=== PATIENT | female | born 1975 | race Hispanic/Latino ===

== ENCOUNTER 2018-06-17 22:37 | Emergency (ER) | payer MEDICARE, OTHER ==
[2018-06-17 23:28] LABS: BASOPHILS % (AUTO) 0.9 % (0.0-5.0); EOSINOPHILS % (AUTO) 2.6 % (0.0-8.0); HEMATOCRIT 42.5 % (36-48); MEAN CORPUSCULAR HEMOGLOBIN 29.8 pg (27.0-33.0); MEAN CORPUSCULAR HGB CONC 33.5 g/dL (32.0-36.0); MONOCYTES % (AUTO) 4.8 % (3.0-13.0); NEUTROPHILS % (AUTO) 53.7 % (40.0-77.0); PLATELET COUNT (AUTO) 285 K/uL (130-400); RED BLOOD CELL COUNT(AUTO) 4.78 MIL/uL (4.00-5.50); RED CELL DISTRIBUTION WIDTH 13.3 % (11.0-15.5); WHITE BLOOD COUNT (AUTO) 7.5 K/uL (4.8-10.8)
[2018-06-17 23:35] LABS: BILIRUBIN,URINE Negative (NEGATIVE); COLOR,URINE Yellow (YELLOW); GLUCOSE, URINE (UA) Negative (NEGATIVE); KETONES,URINE Negative (NEGATIVE); LEUKOCYTE ESTERASE ,URINE Negative (NEGATIVE); NITRATE,URINE Negative (NEGATIVE); OCCULT BLOOD,URINE Negative (NEGATIVE); PH,URINE 7.5 (5.0-8.0); PROTEIN,URINE Negative (NEGATIVE)
[2018-06-17 23:37] LABS: APPEARANCE,URINE CLEAR (CLEAR)
[2018-06-17 23:38] LABS: HCG,QUAL RESULT NEGATIVE (NEGATIVE)
[2018-06-17 23:40] LABS: CREATININE 0.8 mg/dL (0.5-1.5); POTASSIUM 3.6 mmol/L (3.5-5.1)
[2018-06-17 23:42] LABS: INR 0.96 (0.85-1.15); PARTIAL THROMBOPLASTIN TIME 28.4 SEC (26.3-35.5); PROTHROMBIN TIME 10.1 SEC (9.6-11.6)
[2018-06-17 23:44] LABS: ALBUMIN 4.4 g/dL (3.5-5.0); BILIRUBIN,TOTAL 0.8 mg/dL (0.2-1.0); TOTAL PROTEIN, SERUM 8.1 g/dL (6.0-8.3)
== END 2018-06-18 04:23 | disposition home or self-care (01) ==
LOC: EDH 22:37
DX: R14.0 Abdominal distension (gaseous) (principal); R10.84 Generalized abdominal pain; I10 Essential (primary) hypertension; Z90.49 Acquired absence of other specified parts of digestive tract; Z90.710 Acquired absence of both cervix and uterus
CPT/HCPCS: 36415; 71045; 74021; 76700; 80053; 81003; 81025; 82248; 84484; 85025; 85610; 85730; 93005

== ENCOUNTER 2022-08-22 12:17 | Observation (INO) | payer MEDICARE, OTHER ==
[2022-08-22 13:21] LABS: BASOPHILS % (AUTO) 0.3 % (0.0-5.0); HEMATOCRIT 30.8 % (36-48); LYMPHOCYTES % (AUTO) 13.1 % (21.0-51.0); MEAN CORPUSCULAR HEMOGLOBIN 22.1 pg (27.0-33.0); MEAN CORPUSCULAR HGB CONC 28.9 g/dL (32.0-36.0); MEAN CORPUSCULAR VOLUME 76.4 fL (79-99); MONOCYTES % (AUTO) 5.2 % (3.0-13.0); NEUTROPHILS % (AUTO) 80.1 % (40.0-77.0); PLATELET COUNT (AUTO) 218 K/uL (130-400); RED BLOOD CELL COUNT(AUTO) 4.03 MIL/uL (4.00-5.50); WHITE BLOOD COUNT (AUTO) 6.8 K/uL (4.8-10.8)
[2022-08-22 13:34] LABS: INR 1.04 (0.85-1.15); PROTHROMBIN TIME 11.3 SEC (9.6-11.6)
[2022-08-22 13:41] LABS: APPEARANCE,URINE CLEAR (CLEAR); BILIRUBIN,URINE NEGATIVE (NEGATIVE); COLOR,URINE LIGHT-YELLOW (YELLOW); GLUCOSE, URINE (UA) NEGATIVE (NEGATIVE); KETONES,URINE NEGATIVE (NEGATIVE); LEUKOCYTE ESTERASE ,URINE 25 Leu/uL (NEGATIVE); NITRATE,URINE NEGATIVE (NEGATIVE); OCCULT BLOOD,URINE NEGATIVE (NEGATIVE); PROTEIN,URINE NEGATIVE (NEGATIVE); UROBILINOGEN,URINE 0.2 mg/dL (0.2-1.0)
[2022-08-22 13:47] LABS: CREATININE 0.9 mg/dL (0.5-1.5); POTASSIUM 3.3 mmol/L (3.5-5.1)
[2022-08-22 13:51] LABS: ALBUMIN 3.6 g/dL (3.5-5.0); TOTAL PROTEIN, SERUM 6.2 g/dL (6.0-8.3)
[2022-08-22 13:53] LABS: B-TYPE NATRIURETIC PEPTIDE 41 pg/mL (0-100)
[2022-08-22 13:59] LABS: ABG BASE EXCESS -3.9 mmol/L (-2.0-3.0); ABG HCO3 19.9 mmol/L (21.0-28.0); ABG OXYGEN SATURATION 95.9 % (95.0-99.0); ABG PCO2 33 mmHg (32-45)
[2022-08-22 14:05] LABS: BACTERIA,URINE RARE /HPF (None Seen); MUCUS,URINE RARE LPF (None Seen); RBC,URINE 0-1 /HPF (0-1); SQUAMOUS EPITHELIAL CELL,UR RARE /HPF (0-2)
[2022-08-22] MEDS ORDERED: IOHEXOL-350 75 ML VIAL IV ONE (15:20)
[2022-08-22] MEDS ORDERED: POTASSIUM CHLORIDE 10% ELIXIR 20 MEQ/15 ML UDCUP PO PRN (17:00)
[2022-08-22] MEDS ORDERED: POTASSIUM CHLORIDE 20MEQ/100ML 100 ML IV PRN (17:00)
[2022-08-22] MEDS ORDERED: ACETAMINOPHEN 325 MG TAB PO PRN ×2 (17:00)
[2022-08-22] MEDS ORDERED: ZOLPIDEM TARTRATE 5 MG TAB PO PRN (17:00)
[2022-08-22] MEDS ORDERED: DiphenhydrAMINE HCL 50 MG/ML VIAL IV PRN (17:00)
[2022-08-22] MEDS ORDERED: DIPHENHYDRAMINE HCL 25 MG CAPSULE PO PRN (17:00)
[2022-08-22] MEDS ORDERED: MAGNESIUM 2GM PREMIX 50ML 50 ML IV PRN (17:00)
[2022-08-22] MEDS: 0.9%NACL 1000ML 1,000 ML IV SCH (17:10)
[2022-08-22] MEDS: ONDANSETRON 4MG INJ IV PRN (17:11)
[2022-08-22] MEDS ORDERED: HYDR-4419 PO (17:34)
[2022-08-22] MEDS ORDERED: MORINGA PO (17:34)
[2022-08-22] MEDS ORDERED: GABA-529 PO (17:34)
[2022-08-22] MEDS ORDERED: SENN8.6T32 PO (17:34)
[2022-08-22] MEDS ORDERED: SITA100T12 PO (17:34)
[2022-08-22] MEDS ORDERED: VIT D3 PO (17:34)
[2022-08-22] MEDS ORDERED: [UNRECOGNIZED DRUG - OTHER] PO (17:34)
[2022-08-22] MEDS ORDERED: PANT40TA54 PO (17:34)
[2022-08-22] MEDS ORDERED: MELA10TA2 PO (17:34)
[2022-08-22] MEDS ORDERED: LEVE750T10 PO ×2 (17:34→18:07)
[2022-08-22] MEDS ORDERED: TOPI25TA48 PO ×2 (17:34→18:07)
[2022-08-22] MEDS ORDERED: ONDA-105 PO (17:34)
[2022-08-22 17:41] LABS: CHOLESTEROL 153 mg/dL (<200); HDL CHOLESTEROL 35 mg/dL (35-85); LDL DIRECT 94 mg/dL (0-99); TRIGLYCERIDES 191 mg/dL (30-200)
[2022-08-22 17:46] LABS: HEMOGLOBIN A1C 5.1 % (4.0-6.0)
[2022-08-22] MEDS ORDERED: NITROGLYCERIN 0.4 MG SL TAB SL PRN (18:00)
[2022-08-22] MEDS ORDERED: ONDANSETRON 4MG TABLET PO PRN (18:30)
[2022-08-22] MEDS ORDERED: SENNOSIDES 8.6 MG TABLET PO PRN (18:30)
[2022-08-22] MEDS ORDERED: PHARMACY COMMUNICATION MISC SCH (18:30)
[2022-08-22 19:18] LABS: RETICULOCYTE % (AUTO) 1.77 % (0.42-2.23)
[2022-08-22 19:45] LABS: % IRON SATURATION 6.3 % (22-44)
[2022-08-22] MEDS: METOPROLOL TARTRATE 25 MG TAB PO SCH ×2 (20:54→21:00)
[2022-08-22] MEDS: GABAPENTIN 300 MG CAPSULE PO SCH ×2 (20:54→21:00)
[2022-08-22] MEDS: HYDROCORTISONE 20 MG TABLET PO SCH (20:55)
[2022-08-22] MEDS: PANTOPRAZOLE 40 MG TAB DR PO SCH (20:56)
[2022-08-22] MEDS: LEVETIRACETAM 500 MG TABLET PO SCH (20:56)
[2022-08-22] MEDS: TOPIRAMATE 25 MG TABLET PO SCH (20:57)
[2022-08-22] MEDS: KCL 20 MEQ ERTAB PO PRN (20:57)
[2022-08-22] MEDS ORDERED: FAMOTIDINE 20MG TAB PO SCH (21:00)
[2022-08-22] MEDS ORDERED: **HM**(Melatonin 10 MG PO SCH (21:00)
[2022-08-22] MEDS ORDERED: MORPHINE 2 MG SYG IVP PRN (22:30)
[2022-08-22] MEDS ORDERED: MORPHINE 4 MG SYG ONE (23:47)
[2022-08-23] MEDS: KCL 20 MEQ ERTAB PO PRN (00:31)
[2022-08-23 02:25] LABS: BASOPHILS % (AUTO) 0.5 % (0.0-5.0); EOSINOPHILS % (AUTO) 1.4 % (0.0-8.0); HEMATOCRIT 31.9 % (36-48); LYMPHOCYTES % (AUTO) 23.4 % (21.0-51.0); MEAN CORPUSCULAR HEMOGLOBIN 22.1 pg (27.0-33.0); MEAN CORPUSCULAR HGB CONC 28.8 g/dL (32.0-36.0); MEAN CORPUSCULAR VOLUME 76.5 fL (79-99); MONOCYTES % (AUTO) 5.4 % (3.0-13.0); PLATELET COUNT (AUTO) 245 K/uL (130-400); RED BLOOD CELL COUNT(AUTO) 4.17 MIL/uL (4.00-5.50); WHITE BLOOD COUNT (AUTO) 5.8 K/uL (4.8-10.8)
[2022-08-23 02:47] LABS: ALBUMIN 3.7 g/dL (3.5-5.0); POTASSIUM 3.7 mmol/L (3.5-5.1); TOTAL PROTEIN, SERUM 6.6 g/dL (6.0-8.3)
[2022-08-23] MEDS: 0.9%NACL 1000ML 1,000 ML IV SCH (07:58)
[2022-08-23] MEDS: LEVETIRACETAM 500 MG TABLET PO SCH (07:59)
[2022-08-23] MEDS: METOPROLOL TARTRATE 25 MG TAB PO SCH (07:59)
[2022-08-23] MEDS: PANTOPRAZOLE 40 MG TAB DR PO SCH (07:59)
[2022-08-23] MEDS ORDERED: LINAGLIPTIN 5 MG TABLET PO SCH (08:00)
[2022-08-23 08:16] LABS: CREATINE KINASE, TOTAL 74 U/L (21-232); MYOGLOBIN 28 ng/mL (10-92)
[2022-08-23] MEDS ORDERED: ENOXAPARIN SODIUM 30 MG/0.3 ML SQ SCH (09:00)
[2022-08-23] MEDS ORDERED: VIT D3 PO SCH (09:00)
[2022-08-23] MEDS ORDERED: MORINGA PO SCH (09:00)
[2022-08-23] MEDS ORDERED: ASPIRIN 81 MG EC TAB PO SCH (09:00)
[2022-08-23] MEDS ORDERED: [UNRECOGNIZED DRUG - OTHER] PO SCH (09:00)
[2022-08-23] MEDS: HYDROCORTISONE 20 MG TABLET PO SCH (10:05)
[2022-08-23] MEDS: TOPIRAMATE 25 MG TABLET PO SCH (10:07)
[2022-08-23] MEDS: ONDANSETRON 4MG INJ IV PRN (11:02)
[2022-08-23 15:17] VITALS: BP 100/69
== END 2022-08-23 19:01 | disposition home or self-care (01) ==
LOC: EDH 12:17 → EDHIP 16:32
PROVIDERS: ADMIT Hospitalist; ATTEND Hospitalist
DX: G40.909 Epilepsy, unspecified, not intractable, without status epilepticus (principal); C71.9 Malignant neoplasm of brain, unspecified; G43.909 Migraine, unspecified, not intractable, without status migrainosus; I20.0 Unstable angina; E87.6 Hypokalemia; E78.5 Hyperlipidemia, unspecified; G47.00 Insomnia, unspecified; I10 Essential (primary) hypertension; I82.622 Acute embolism and thrombosis of deep veins of left upper extremity; K59.00 Constipation, unspecified; E27.40 Unspecified adrenocortical insufficiency; D64.9 Anemia, unspecified; Z79.899 Other long term (current) drug therapy; Z85.841 Personal history of malignant neoplasm of brain; Z86.73 Personal history of transient ischemic attack (TIA), and cerebral infarction without residual deficits; Z90.710 Acquired absence of both cervix and uterus; Z92.21 Personal history of antineoplastic chemotherapy; Z92.3 Personal history of irradiation; Z98.890 Other specified postprocedural states
CPT/HCPCS: 80061 ×2; 96374; 96361 ×2; 99285; 83036; 82550 ×3; 83874 ×3; 84484 ×4; 80053 ×2; 82803; 83880; 82728; 85025 ×2; 85610; 85651; 87077; 87088; 87186; 82607; 81001; 36415 ×2; 71045; 71270; 93005 ×3; 36600; 80201; 80177; 96376; 96372; 96375; 93306; 93356; Q0163; G0378 ×25; J2405 ×2; J2270; Q9967; J1200; J7030; J1650

== ENCOUNTER 2022-09-03 09:27 | Emergency (ER) | payer OTHER ==
[~2022-09-03] VITALS: Ht 160 cm; Wt 86.2 kg
[~2022-09-03 09:27] MED LIST: GABA-529 PO; HYDR-4419 PO; LEVE750T10 PO; MELA10TA2 PO; MORINGA PO; ONDA-105 PO; PANT40TA54 PO; SENN8.6T32 PO; SITA100T12 PO; TOPI25TA48 PO; VIT D3 PO; [UNRECOGNIZED DRUG - OTHER] PO
[2022-09-03] MEDS ORDERED: MORPHINE 2 MG SYG IVP ONE (10:00)
[2022-09-03] MEDS: ONDANSETRON 4MG INJ IVP ONE ×2 (10:22→13:07)
[2022-09-03 10:24] LABS: BASOPHILS % (AUTO) 0.5 % (0.0-5.0); EOSINOPHILS % (AUTO) 0.4 % (0.0-8.0); HEMATOCRIT 34.1 % (36-48); MEAN CORPUSCULAR HEMOGLOBIN 21.8 pg (27.0-33.0); MEAN CORPUSCULAR HGB CONC 28.2 g/dL (32.0-36.0); MEAN CORPUSCULAR VOLUME 77.5 fL (79-99); MONOCYTES % (AUTO) 7.3 % (3.0-13.0); NEUTROPHILS % (AUTO) 78.9 % (40.0-77.0); PLATELET COUNT (AUTO) 226 K/uL (130-400); RED CELL DISTRIBUTION WIDTH 17.7 % (11.0-15.5); WHITE BLOOD COUNT (AUTO) 8.1 K/uL (4.8-10.8)
[2022-09-03 10:44] LABS: ALBUMIN 3.9 g/dL (3.5-5.0); CREATININE 0.9 mg/dL (0.5-1.5); POTASSIUM 3.6 mmol/L (3.5-5.1); TOTAL PROTEIN, SERUM 7.3 g/dL (6.0-8.3)
[2022-09-03] MEDS ORDERED: IOHEXOL-350 75 ML VIAL IV ONE (10:57)
[2022-09-03] MEDS ORDERED: HYDROMORPHONE 0.5 MG SYG (0.5MG/0.5ML) IVP ONE (12:30)
[2022-09-03 12:34] LABS: APPEARANCE,URINE CLEAR (CLEAR); BILIRUBIN,URINE NEGATIVE (NEGATIVE); COLOR,URINE LIGHT-YELLOW (YELLOW); GLUCOSE, URINE (UA) NEGATIVE (NEGATIVE); KETONES,URINE NEGATIVE (NEGATIVE); LEUKOCYTE ESTERASE ,URINE NEGATIVE Leu/uL (NEGATIVE); NITRATE,URINE NEGATIVE (NEGATIVE); OCCULT BLOOD,URINE NEGATIVE (NEGATIVE); PH,URINE 6.5 (5.0-8.0); PROTEIN,URINE NEGATIVE (NEGATIVE); RBC,URINE 0-1 /HPF (0-1); SQUAMOUS EPITHELIAL CELL,UR RARE /HPF (0-2); UROBILINOGEN,URINE 0.2 mg/dL (0.2-1.0); WBC,URINE 0-1 /HPF (0-1)
[2022-09-03 14:56] VITALS: BP 131/76
== END 2022-09-03 15:10 | disposition home or self-care (01) ==
LOC: EDH 09:27
DX: M25.561 Pain in right knee (principal); M54.2 Cervicalgia; M54.9 Dorsalgia, unspecified; I10 Essential (primary) hypertension; E11.9 Type 2 diabetes mellitus without complications; Z90.49 Acquired absence of other specified parts of digestive tract; Z85.841 Personal history of malignant neoplasm of brain; Z98.890 Other specified postprocedural states; W01.0XXA Fall on same level from slipping, tripping and stumbling without subsequent striking against object, initial encounter; Y93.89 Activity, other specified; Y92.89 Other specified places as the place of occurrence of the external cause; Y99.8 Other external cause status
CPT/HCPCS: 99285; 80053; 85025; 81001; 36415; 73502; 73562; 73590; 70450; 72125; 70486; 74177; 96374; J2405; Q9967; J1170

== ENCOUNTER 2022-09-04 13:12 | Emergency (ER) | payer OTHER ==
[~2022-09-04] VITALS: Ht 157.5 cm; Wt 83.9 kg
[2022-09-04] MEDS ORDERED: 0.9%NACL 1000ML 1,000 ML IV ONE (14:00)
[2022-09-04 14:25] LABS: HEMATOCRIT 30.6 % (36-48); MEAN CORPUSCULAR HEMOGLOBIN 22.5 pg (27.0-33.0); MEAN CORPUSCULAR HGB CONC 28.4 g/dL (32.0-36.0); MEAN CORPUSCULAR VOLUME 79.1 fL (79-99); PLATELET COUNT (AUTO) 221 K/uL (130-400); RED BLOOD CELL COUNT(AUTO) 3.87 MIL/uL (4.00-5.50); RED CELL DISTRIBUTION WIDTH 18.4 % (11.0-15.5); WHITE BLOOD COUNT (AUTO) 6.4 K/uL (4.8-10.8)
[2022-09-04 14:44] LABS: BASOPHILS % (AUTO) 0.6 % (0.0-5.0); LYMPHOCYTES % (AUTO) 15.9 % (21.0-51.0); MONOCYTES % (AUTO) 9.9 % (3.0-13.0); NEUTROPHILS % (AUTO) 70.5 % (40.0-77.0)
[2022-09-04 14:58] LABS: ALBUMIN 3.4 g/dL (3.5-5.0); CREATININE 0.9 mg/dL (0.5-1.5); TOTAL PROTEIN, SERUM 6.3 g/dL (6.0-8.3)
[2022-09-04] MEDS ORDERED: KCL 20 MEQ ERTAB PO ONE (15:30)
[2022-09-04 15:50] VITALS: BP 118/60
[2022-09-04 16:00] LABS: APPEARANCE,URINE CLOUDY (CLEAR); BILIRUBIN,URINE NEGATIVE (NEGATIVE); COLOR,URINE YELLOW (YELLOW); GLUCOSE, URINE (UA) NEGATIVE (NEGATIVE); KETONES,URINE NEGATIVE (NEGATIVE); LEUKOCYTE ESTERASE ,URINE 25 Leu/uL (NEGATIVE); NITRATE,URINE NEGATIVE (NEGATIVE); OCCULT BLOOD,URINE NEGATIVE (NEGATIVE); PH,URINE 5.5 (5.0-8.0); PROTEIN,URINE 20 mg/dL (NEGATIVE); UROBILINOGEN,URINE 0.2 mg/dL (0.2-1.0)
[2022-09-04 16:06] LABS: BACTERIA,URINE FEW /HPF (None Seen); CALCIUM OXALATE CRYSTALS,UR FEW /LPF (None Seen); MUCUS,URINE FEW LPF (None Seen); SQUAMOUS EPITHELIAL CELL,UR FEW /HPF (0-2); YEAST,URINE BUDDING RARE /HPF (None Seen)
== END 2022-09-04 16:32 | disposition home or self-care (01) ==
LOC: EDH 13:12
DX: C71.9 Malignant neoplasm of brain, unspecified (principal); C79.9 Secondary malignant neoplasm of unspecified site; E11.9 Type 2 diabetes mellitus without complications; I10 Essential (primary) hypertension; Z90.49 Acquired absence of other specified parts of digestive tract; Z76.5 Malingerer [conscious simulation]; Z90.710 Acquired absence of both cervix and uterus
CPT/HCPCS: 99285; 96360; 70450; 71045; 84484; 80053; 85025; 87088; 83605; 81001; 36415; 93005; J7030

== ENCOUNTER 2022-11-25 12:39 | Emergency (ER) | payer OTHER ==
[~2022-11-25] VITALS: Ht 162.6 cm; Wt 77.1 kg
[2022-11-25] MEDS ORDERED: 0.9%NACL 1000ML 1,000 ML IV ONE (13:30)
[2022-11-25] MEDS ORDERED: ONDANSETRON 4MG INJ IVP ONE (13:30)
[2022-11-25] MEDS ORDERED: MORPHINE 4 MG SYG IVP ONE (13:30)
[2022-11-25 13:39] LABS: BASOPHILS # (AUTO) 0.03 K/uL (0.00-0.20); BASOPHILS % (AUTO) 0.3 % (0.0-5.0); EOSINOPHILS # (AUTO) 0.07 K/uL (0.00-0.70); EOSINOPHILS % (AUTO) 0.8 % (0.0-8.0); HEMATOCRIT 34.4 % (36-48); IMMATURE GRANULOCYTE ABSOLUTE 0.02 K/uL (0-1); LYMPHOCYTES % (AUTO) 10.5 % (21.0-51.0); MEAN CORPUSCULAR HEMOGLOBIN 23.7 pg (27.0-33.0); MEAN CORPUSCULAR HGB CONC 30.8 g/dL (32.0-36.0); MONOCYTES # (AUTO) 0.5 K/uL (0.1-1.0); MONOCYTES % (AUTO) 5.3 % (3.0-13.0); NEUTROPHILS # (AUTO) 7.5 K/uL (1.8-7.7); NEUTROPHILS % (AUTO) 82.9 % (40.0-77.0); PLATELET COUNT (AUTO) 170 K/uL (130-400); RED BLOOD CELL COUNT(AUTO) 4.47 MIL/uL (4.00-5.50); RED CELL DISTRIBUTION WIDTH 17.4 % (11.0-15.5); WHITE BLOOD COUNT (AUTO) 9.1 K/uL (4.8-10.8)
[2022-11-25 13:42] LABS: BILIRUBIN,URINE NEGATIVE (NEGATIVE); COLOR,URINE LIGHT-YELLOW (YELLOW); GLUCOSE, URINE (UA) NEGATIVE (NEGATIVE); KETONES,URINE NEGATIVE (NEGATIVE); LEUKOCYTE ESTERASE ,URINE 500 Leu/uL (NEGATIVE); NITRATE,URINE NEGATIVE (NEGATIVE); OCCULT BLOOD,URINE LARGE (NEGATIVE); PH,URINE 5.5 (5.0-8.0); PROTEIN,URINE 30 mg/dL (NEGATIVE); UROBILINOGEN,URINE 0.2 mg/dL (0.2-1.0)
[2022-11-25 13:43] LABS: ADD UA MICROSCOPIC YES; APPEARANCE,URINE HAZY (CLEAR)
[2022-11-25 13:46] LABS: BACTERIA,URINE FEW /HPF (None Seen); MUCUS,URINE RARE LPF (None Seen); RBC,URINE 51-100 /HPF (0-1); SQUAMOUS EPITHELIAL CELL,UR RARE /HPF (0-2); WBC CLUMP MANY /HPF (0-1); WBC,URINE TNTC /HPF (0-1)
[2022-11-25 13:56] LABS: ALBUMIN 3.9 g/dL (3.5-5.0); BILIRUBIN,TOTAL 0.9 mg/dL (0.2-1.0); CREATININE 0.9 mg/dL (0.5-1.5); POTASSIUM 3.4 mmol/L (3.5-5.1); TOTAL PROTEIN, SERUM 7.3 g/dL (6.0-8.3)
[2022-11-25 13:58] VITALS: BP 107/73; PULSE 87; RESP 17; O2SAT 97
[2022-11-25] MEDS ORDERED: CEFTRIAXONE 1G VIAL IVPB ONE (15:00)
[2022-11-25] MEDS ORDERED: CEPH500T PO (15:31)
[2022-11-25] MEDS ORDERED: PHEN-847 PO (15:55)
[2022-11-25] MEDS ORDERED: ONDA4TAB10 PO (15:55)
== END 2022-11-25 16:15 | disposition home or self-care (01) ==
LOC: EDH 12:39
DX: R31.9 Hematuria, unspecified (principal); N39.0 Urinary tract infection, site not specified; R31.0 Gross hematuria; I10 Essential (primary) hypertension; E11.9 Type 2 diabetes mellitus without complications; Z90.710 Acquired absence of both cervix and uterus; Z79.899 Other long term (current) drug therapy; Z98.890 Other specified postprocedural states; Z88.5 Allergy status to narcotic agent; Z88.8 Allergy status to other drugs, medicaments and biological substances
CPT/HCPCS: 99285; 74176; 96374; 96375; 96361; 80053; 85025; 87077; 87088; 87186; 81001; 36415; J7030; J0696; J2405; J2270

== ENCOUNTER → 2022-12-04 | Emergency (ER) | payer OTHER ==
[~2022-12-04] VITALS: Ht 162.6 cm; Wt 77.1 kg
[~2022-12-04] MED LIST changes: +CEPH500T PO; +ONDA4TAB10 PO; +PHEN-847 PO
[2022-12-04 11:53] VITALS: BP 116/77; PULSE 124; RESP 20
[2022-12-04 12:32] LABS: BASOPHILS # (AUTO) 0.03 K/uL (0.00-0.20); BASOPHILS % (AUTO) 0.4 % (0.0-5.0); EOSINOPHILS # (AUTO) 0.01 K/uL (0.00-0.70); EOSINOPHILS % (AUTO) 0.1 % (0.0-8.0); HEMATOCRIT 38.6 % (36-48); IMMATURE GRANULOCYTE ABSOLUTE 0.03 K/uL (0-1); LYMPHOCYTES # (AUTO) 0.4 K/uL (1.0-4.8); LYMPHOCYTES % (AUTO) 5.3 % (21.0-51.0); MEAN CORPUSCULAR HEMOGLOBIN 23.9 pg (27.0-33.0); MEAN CORPUSCULAR HGB CONC 30.8 g/dL (32.0-36.0); MEAN CORPUSCULAR VOLUME 77.7 fL (79-99); MONOCYTES # (AUTO) 0.4 K/uL (0.1-1.0); NEUTROPHILS # (AUTO) 6.9 K/uL (1.8-7.7); NEUTROPHILS % (AUTO) 88.8 % (40.0-77.0); PLATELET COUNT (AUTO) 176 K/uL (130-400); RED BLOOD CELL COUNT(AUTO) 4.97 MIL/uL (4.00-5.50); RED CELL DISTRIBUTION WIDTH 17.2 % (11.0-15.5); WHITE BLOOD COUNT (AUTO) 7.8 K/uL (4.8-10.8)
[2022-12-04 12:45] LABS: APPEARANCE,URINE CLEAR (CLEAR); BILIRUBIN,URINE NEGATIVE (NEGATIVE); COLOR,URINE YELLOW (YELLOW); GLUCOSE, URINE (UA) NEGATIVE (NEGATIVE); KETONES,URINE NEGATIVE (NEGATIVE); LEUKOCYTE ESTERASE ,URINE 250 Leu/uL (NEGATIVE); NITRATE,URINE NEGATIVE (NEGATIVE); OCCULT BLOOD,URINE NEGATIVE (NEGATIVE); PROTEIN,URINE 10 mg/dL (NEGATIVE); UROBILINOGEN,URINE 0.2 mg/dL (0.2-1.0)
[2022-12-04 12:48] LABS: ADD UA MICROSCOPIC YES
[2022-12-04 12:51] LABS: MUCUS,URINE RARE LPF (None Seen); SQUAMOUS EPITHELIAL CELL,UR RARE /HPF (0-2)
[2022-12-04 13:03] LABS: POTASSIUM 3.2 mmol/L (3.5-5.1)
[2022-12-04 13:11] LABS: BILIRUBIN,TOTAL 1.2 mg/dL (0.2-1.0); TOTAL PROTEIN, SERUM 7.7 g/dL (6.0-8.3)
== END ==
LOC: EDH 11:52
DX: R53.1 Weakness (principal); R05.9 Cough, unspecified; R42 Dizziness and giddiness; Z53.21 Procedure and treatment not carried out due to patient leaving prior to being seen by health care provider
CPT/HCPCS: 36415; 80053; 81001; 83605; 85025; 87040; 87088; 99281